=== PATIENT | female | born 1995 | race African-American/Black ===

== ENCOUNTER 2019-04-06 09:17 | Emergency (ER) | payer OTHER ==
[~2019-04-06] VITALS: Ht 162.6 cm; Wt 72.7 kg
[~2019-04-06 09:17] MED LIST: IBUP800T48 PO
[2019-04-06 09:21] VITALS: BP 117/81; PULSE 92; RESP 18; Ht 162.6 cm; Wt 72.7 kg
--- NOTE | 2019-04-06 10:39 | ERD ---
ER Documentation Chief Complaint Chief Complaint c/o CWP x1 day, exacerbated by moveme, onset after "smoking weed" yesterday HPI Patient is a 23 years old female with no known past medical history presenting to the clinic for chest wall pain since yesterday at 5 PM. Patient reports smoking marijuana which was followed by sharp left-sided chest pain that has not resolved since then. She denies taking any OTC medication. Patient denies coug h, sputum production, difficulty breathing, fever, chills, night sweats. ROS All systems reviewed and are negative except as per history of present illness. Allergies Allergies: Coded Allergies: No Known Allergy (Unverified , 04/06/19) PMhx/Soc History of Surgery: No Anesthesia Reaction: No Hx Neurological Disorder: No Hx Respiratory Disorders: No Hx Cardiac Disorders: No Hx Psychiatric Problems: No Hx Miscellaneous Medical Probl: No Hx Alcohol Use: No Hx Substance Use: Yes (marijuana) Hx Tobacco Use: No Smoking Status: Never smoker FmHx Family History: No diabetes, No coronary disease, No other Physical Exam Vitals Vital Signs Date Temp Pulse Resp B/P (MAP) Pulse Ox O2 O2 Flow FiO2 Time Delivery Rate 04/06/19 98.2 92 18 117/81 100 09:21 (93) Physical Exam Const: No acute distress Head: Atraumatic Eyes: Normal Conjunctiva Resp: Clear to auscultation bilaterally Cardio: Regular rate and rhythm, no murmurs Abd: Soft, non tender, non distended. Normal bowel sounds Skin: No petechiae or rashes Psych: Normal Mood and Affect Procedures/MDM Patient was seen and evaluated for chest wall pain post marijuana inhalation. Low suspicion of pneumonia due to an unremarkable pulmonary exam. EKG: Rate/Rhythm: Normal Sinus Rhythm QRS, ST, T-waves: No changes consistent w/ acute ischemia Impression: No evidence of ischemia or arrhythmia Patient stable ready for discharge. Patient be discharged with ibuprofen 800 mg. Follow-up with PCP. Departure Diagnosis: Primary Impression: Chest wall pain Condition: Stable Patient Instructions: Chest Wall Pain, Costochondritis Referrals: [facility] Additional Instructions: Patient advised to return to the ED immediately for new or worsening symptoms. Patient advised to follow up with primary care provider in the next 24-48 hours. Patient verbalized understanding and agrees with treatment plan and course of action. If patient has no primary care they may follow up with [facility] + [facility] [address] [place] [address] or [facility] [address] [place] [address] or [facility] [address] [place] [address] PEÑA WYATT PA-C Apr 06, 2019 10:39
== END 2019-04-06 11:11 | disposition home or self-care (01) ==
LOC: FTE 09:17
DX: R07.89 Other chest pain (principal)
CPT/HCPCS: 93005; Z7502